=== PATIENT | female | born 1980 | race Caucasian/White ===

== ENCOUNTER 2021-09-02 02:44 | Emergency (ER) | payer MEDICAID ==
[~2021-09-02] VITALS: Ht 162.6 cm; Wt 72.6 kg
[2021-09-02 02:59] VITALS: BP 101/63
[2021-09-02] MEDS ORDERED: DEXAMETHASONE SOD PHOSPHATE 10 MG/ML VIAL ONE (03:03)
[2021-09-02] MEDS ORDERED: DEXAMETHASONE SOD PHOSPHATE 4 MG/ML VIAL IM ONE (03:30)
== END 2021-09-02 03:58 | disposition home or self-care (01) ==
LOC: ER 02:54
DX: L23.89 Allergic contact dermatitis due to other agents (principal); T49.4X5A Adverse effect of keratolytics, keratoplastics, and other hair treatment drugs and preparations, initial encounter; Y92.89 Other specified places as the place of occurrence of the external cause
CPT/HCPCS: 99283; 96372; J1100